=== PATIENT | female | born 1950 | race Caucasian/White ===

== ENCOUNTER 2017-12-17 09:15 | Inpatient (IN) | payer OTHER, BC ==
[2017-12-31] MEDS ORDERED: TRANEXAMIC ACID 3,000 MG in NS (SYRINGE) 50 ML IRR ONE (06:00)
[2017-12-31] MEDS ORDERED: ROPIVACAINE 0.2% 80 MG, EPINEPHrine 0.2 MG, KETOROLAC TROMETHAMINE 30 MG in SYRINGE 0 ML IU ONE (06:00)
--- NOTE | 2017-12-31 07:14 | PDHPUP ---
History & Physical Update H&P update statement: This history and physical update is based on an assessment of the patient which was completed after admission or registration (within 24 hours), but prior to the surgery/procedure. H&P update: H&P reviewed & patient examined, no change in patient's condition since H&P completed
[2017-12-31] MEDS ORDERED: ceFAZolin 2 GM/DEXTROSE 100 ML IV ONE (08:21)
[2017-12-31] MEDS ORDERED: ACETAMINOPHEN 325 MG TAB PO ONE (08:21)
[2017-12-31] MEDS ORDERED: FAMOTIDINE 20 MG TAB PO ONE (08:21)
[2017-12-31] MEDS ORDERED: DEXAMETHASONE 4 MG/ML VIAL IVP ONE (08:21)
[2017-12-31] MEDS ORDERED: LR 1,000 ML IV ONE (08:22)
[2017-12-31] MEDS ORDERED: LIDOCAINE 1% 2 ML INJ ID PRN (08:22)
[2017-12-31] MEDS ORDERED: TRANEXAMIC ACID 3,000 MG/50 ML BAG IRR ONE (08:33)
[2017-12-31] MEDS ORDERED: BUPIVACAINE/DEXTROSE 7.5MG/ML 2 ML SPINAL AMP SP ONE (09:15)
[2017-12-31] MEDS ORDERED: MIDAZOLAM 2 MG/2 ML VIAL ONE (09:15)
[2017-12-31] MEDS ORDERED: ROPIVACAINE HCL 150 MG/30 ML INJ ONE (09:15)
[2017-12-31] MEDS ORDERED: PROPOFOL/EMULSION 500 MG/50 ML BOTTLE IV ONE (09:15)
[2017-12-31] MEDS ORDERED: ALBUTEROL 3 ML DEYVIAL IH PRN (09:59)
[2017-12-31] MEDS ORDERED: LR 500 ML IV PRN (09:59)
[2017-12-31] MEDS ORDERED: ONDANSETRON 4 MG/2 ML VIAL IVP PRN ×2 (09:59→11:16)
[2017-12-31] MEDS ORDERED: fentaNYL 100 MCG/2 ML INJ IVP PRN (09:59)
[2017-12-31] MEDS ORDERED: NALOXONE HCL 0.4 MG/ML INJ IVP PRN (09:59)
[2017-12-31] MEDS ORDERED: DEXAMETHASONE 4 MG/ML VIAL IVP PRN (09:59)
--- NOTE | 2017-12-31 09:59 | PDANEPAE ---
ANE Past Medical History - Cardiovascular History Hx Hypertension: No Hx Arrhythmias: Yes Hx Chest Pain: No Hx Coronary Artery / Peripheral Vascular Disease: No Hx CHF / Valvular Disease: No Hx Palpitations: No Cardiovascular History Comment: pt reports benign heart murmur - Pulmonary History Hx COPD: No Hx Recent Upper Respiratory Infection: No Hx Oxygen in Use at Home: No O2 in Use at Home (L/minute): na Hx Sleep Apnea: No Sleep Apnea Screening Result - Last Documented: Negative - Neurologic History Hx Cerebrovascular Accident: No Hx Seizures: No Hx Dementia: No - Endocrine History Hx Diabetes: No - Renal History Hx Renal Disorders: No - Neurological & Psychiatric Hx Hx Neurological and Psychiatric Disorders: No - Cancer History Hx Cancer: No - Congenital Disorder History Hx Congenital Disorders: No - GI History Hx Gastrointestinal Disorders: No - Other Health History Other Health History: none reported - Chronic Pain History Chronic Pain: No - Surgical History Prior Surgeries: Left partial knee arthroplasty - 2012. bilateral meniscus repairs. tubal ligation ANE Review of Systems Review of Systems: - Exercise capacity METS (RN): 4 METS ANE Patient History - Allergies Allergies/Adverse Reactions: hydroxyzine HCl [From Atarax] Allergy (Verified 12/08/17 11:56) Hives - Home Medications Home Medications: Calcium Carbonate [Oyster Shell Calcium 500 mg (*)] 500 mg PO DAILY 12/01/17 [ Last Taken 2 Weeks Ago ~12/17/17] Herbals/Supplements -Info Only 1 ea PO DAILY 12/01/17 [Last Taken 2 Weeks Ago ~ 12/17/17] valACYclovir [Valtrex (*)] 500 mg PO DAILY 12/01/17 [Last Taken 12/03/17] - NPO status NPO Since - Liquids (Date): 12/31/17 NPO Since - Liquids (Time): 07:00 NPO Since - Solids (Date): 12/30/17 NPO Since - Solids (Time): 18:00 - Smoking Hx Smoking Status: Never smoked - Family Anes Hx Family Hx Anesthesia Complications: none ANE Labs/Vital Signs - Vital Signs Blood Pressure: 125/67 Heart Rate: 59 Respiratory Rate: 18 O2 Sat (%): 95 Height: 177.8 cm Weight: 70.307 kg ANE Physical Exam - Airway Neck exam: FROM Mallampati Score: Class 1 Mouth exam: normal dental/mouth exam - Pulmonary Pulmonary: no respiratory distress, no rales or rhonchi, clear to auscultation - Cardiovascular Cardiovascular: regular rate and rhythym, no murmur, rub, or gallop - ASA Status ASA Status: II ANE Anesthesia Plan Anesthesia Plan: spinal Regional Anesthesia: single shot NB, adductor canal FNB
[2017-12-31] MEDS ORDERED: TEMAZEPAM 15 MG CAP PO PRN (11:16)
[2017-12-31] MEDS ORDERED: PROMETHAZINE HCL 25 MG/ML INJ IVP PRN (11:16)
[2017-12-31] MEDS ORDERED: LACTULOSE 20 GM/30 ML UDCUP PO PRN (11:16)
[2017-12-31] MEDS ORDERED: DIPHENOXYLATE/ATROPINE LOMOTIL 1 TAB PO PRN (11:16)
[2017-12-31] MEDS ORDERED: MAGNESIUM HYDROXIDE 30 ML UDCUP PO PRN (11:16)
[2017-12-31] MEDS ORDERED: PROMETHAZINE HCL 25 MG SUPPR PR PRN (11:16)
[2017-12-31] MEDS ORDERED: METOCLOPRAMIDE 10 MG/2 ML VIAL IVP PRN (11:16)
[2017-12-31] MEDS ORDERED: ONDANSETRON DISINTEGRATING 4 MG TAB PO PRN (11:16)
[2017-12-31] MEDS ORDERED: POLYETHYLENE GLYCOL 3350 17 GM PKT PO PRN (11:16)
[2017-12-31] MEDS ORDERED: diphenhydrAMINE 25 MG CAP PO PRN (11:16)
[2017-12-31] MEDS ORDERED: BISACODYL 10 MG SUPP PR PRN (11:16)
--- NOTE | 2017-12-31 11:16 | POSTOPPROG ---
Post Op Note Date of Operation: 12/31/17 Surgeon: Kallie Stone Broomcorn Grader: bc stone PA-C Anesthesiologist: Dr. Paulino Anesthesia: Spinal, Other (Specify) (adductor canal block) Pre-op Diagnosis: right knee OA Post-op Diagnosis: same Indication: right knee pain Procedure: R TKA robot assisted, sensor assisted Findings: severe knee OA Inf/Abcess present in the surg proc area at time of surgery?: No EBL: 50-100
[2017-12-31] MEDS ORDERED: LR 1,000 ML IV SCH (11:30)
--- NOTE | 2017-12-31 12:03 | POSTANESTH ---
Post Anesthetic Evaluation Cardiovascular Status: Normal, Stable, Similar to Pre-Op Cond Respiratory Status: Normal, Stable, Similar to Pre-op Cond. Level of Consciousness/Mental Status: Can Participate in Eval Pain Control: Adequate, Prn Tx Ordered Nausea/Vomiting Control: Adequate, Prn Tx Ordered Complications Possibly Related to Anesthesia: None Noted
[2017-12-31] MEDS: ACETAMINOPHEN 325 MG TAB PO SCH ×3 (13:07→23:46)
--- NOTE | 2017-12-31 18:22 | GOP ---
DATE OF OPERATION: 12/31/2017 SURGEON: Yanely Lynch MD MANAGER GOVERNMENT: Christa Lynch, MOE ANESTHESIA: Spinal. PREOPERATIVE DIAGNOSIS: Right knee osteoarthritis. POSTOPERATIVE DIAGNOSIS: Right knee osteoarthritis. PROCEDURE PERFORMED: Right total knee arthroplasty with computer navigation, robotic assist. FINDINGS: Severe lateral patellofemoral osteoarthritis. ESTIMATED BLOOD LOSS: 30 cc. INDICATIONS: The patient is a 67-year-old female with severe and progressive pain and deformity of t he right knee unresponsive to conservative care. The risks and benefits of surgical intervention wer e explained in detail. DESCRIPTION OF PROCEDURE: The patient was brought to the operative room and placed on the table in t he supine position. Spinal anesthesia was induced without difficulty. A pneumatic tourniquet was appl ied about the right proximal thigh, and the leg was prepped and draped in a sterile fashion. The leg south was applied. After exsanguination by elevation the tourniquet was inflated to 250 mmHg. Incision was made anterior medial from the tibial tuberosity to a point 2 cm proximal to the superior pole of the patella. Medial parapatellar arthrotomy was carried out from the superior pole of the pa tella and posteriorly in line with the fibers of the Type II VMO. The medial collateral ligament was elevated and the infrapatellar fat pad was resected. The patella was everted and the articular surface was excised. A 35 mm patellar button was placed. Attention was turned first to the distal aspect of the femur. After exposure of the femur, 2 half pi ns were placed for fixation of the femoral array. In a similar fashion, 2 pins were placed anteromed ial on the tibia for fixation of the tibial array. External land marking and registration of the hip center was performed without difficulty. Internal femoral and tibial registration was carried out w ithout difficulty and the femoral and tibial checkpoints were placed and verified for accuracy. Attention was turned to the femur. The foot print for the size 4 femoral component was cut with the saw using the [employer] robotic system and verified for accuracy against the CT based plan. In a similar f ashion, the saw was used to cut the footprint for the size 4 tibial component using the [employer] system an d verified for accuracy against the CT based plan. The tibial articular surface was excised without d ifficulty, followed by the intercondylar box cut. The knee was extended and the remnants of the medial and lateral meniscus were excised. The posterior capsule was injected with ropivacaine, epinephrine and Toradol. A size 4 tibial tray was positioned . Trial reduction was then carried out. There was excellent range of motion, alignment, and stability using the 4 x 9 mm polyethylene. All trials were then removed. The joint was thoroughly irrigated and carefully dried. The Press-Fit c omponents were implanted. The permanent 9 mm polyethylene was placed without difficulty. The tourniquet was deflated and all bleeders were coagulated. The wound was thoroughly irrigated and closed using interrupted sutures of 2-0 Vicryl for the joint capsule. The subcu was closed with 3-0 V icryl and the skin with 4-0 Monocryl. Dermabond and Steri-Strips were applied followed by a compress milan dressing. The patient was then moved from the operating room to the recovery room in good conditi on, having tolerated the procedure well. /[id number]/MODL
[2017-12-31] MEDS: CYCLOBENZAPRINE 10 MG TAB PO PRN (18:25)
[2017-12-31] MEDS: ceFAZolin 2 GM/DEXTROSE 100 ML IV SCH (18:29)
[2017-12-31] MEDS: oxyCODONE IR 5 MG TAB PO PRN (21:27)
[2017-12-31] MEDS: SENNOSIDES/DOCUSATE SODIUM TAB PO SCH (21:28)
[2017-12-31] MEDS: FAMOTIDINE 20 MG TAB PO SCH (21:28)
[2017-12-31] MEDS: ASPIRIN 81 MG CHEWABLE TAB PO SCH (21:28)
[2018-01-01] MEDS: ceFAZolin 2 GM/DEXTROSE 100 ML IV SCH (02:03)
[2018-01-01] MEDS: CYCLOBENZAPRINE 10 MG TAB PO PRN (02:03)
[2018-01-01] MEDS: ACETAMINOPHEN 325 MG TAB PO SCH ×4 (06:23→23:40)
[2018-01-01] MEDS: oxyCODONE IR 5 MG TAB PO PRN ×3 (06:27→23:41)
--- NOTE | 2018-01-01 08:42 | SOAPPROG ---
SOAP Progress Note Assessment/Plan: Assessment: Patient is doing well POD 1 s/p R TKA Pain management: pain is well controlled on oral pain meds. VTE ppx: recommend aspirin 81 mg BID for 4 weeks, cont FARIBA and SCDs Anemia: level is expected initially postop. Asymptomatic. Continue to monitor D/c planning: d/c to home tomorrow pending release from PT and availability of social support out of hospital Adnexal mass on CT: radiologist recommend ultrasound to further work up incidental finding on CT. Ordered STAT. Postop urinary retention: patient was straight cath'd yesterday, resolved today. Plan: 01/01/18 08:39 Subjective: patient states her postop plans for postoperative care changed last minute and that she does not have assistance postop today, denies SOB, chest pain, N/V. c/ o pain in right knee. Objective: Vital Signs Temp Pulse Resp BP Pulse Ox 36.4 C 61 16 132/67 H 95 01/01/18 07:43 01/01/18 07:43 01/01/18 07:43 01/01/18 07:43 01/01/18 07:43 Laboratory Results 01/01/18 04:27 12/31/17 01/01/18 01/02/18 05:59 05:59 05:59 Intake Total 3020 300 Output Total 1710 Balance 1310 300 RLE: incision dressing is clean and dry, NVI, +pf/df ICD10 Worksheet Patient Problems: Problems Problem Status Onset Primary localized osteoarthritis of right knee Acute
[2018-01-01] MEDS: SENNOSIDES/DOCUSATE SODIUM TAB PO SCH ×2 (09:01→20:46)
[2018-01-01] MEDS: ASPIRIN 81 MG CHEWABLE TAB PO SCH ×2 (09:01→20:46)
[2018-01-01] MEDS: FAMOTIDINE 20 MG TAB PO SCH ×2 (09:01→20:46)
--- NOTE | 2018-01-01 09:05 | GDS ---
ADMISSION DIAGNOSIS: Right knee osteoarthritis. DISCHARGE DIAGNOSIS: Right knee osteoarthritis. PROCEDURE: Right total knee arthroplasty with robotic assistance. VTE PROPHYLAXIS: Recommend aspirin 81 mg twice daily for 4 weeks. BRIEF DESCRIPTION OF HOSPITAL STAY: Patient was admitted for an elective joint arthroplasty. The patient tolerated the procedure well and has passed physical therapy. The patient was given appropriate antibiotic prophylaxis and venous thromboembolism prophylaxis. The patient's pain was well controlled on oral pain medication, patient was holding down food, and had urinated. Decision was made to discharge the patient. The patient was given post-operative prescriptions pre-operatively. PLAN: To follow up as scheduled on 01/15/2018. /[id number]/MODL MTDD
--- NOTE | 2018-01-01 16:13 | PDMN ---
Medical Necessity Medical necessity: Change to IP, as of 01/01/18, per PA & MCG S-700; los >2 mn s/ p R TKA w/anemia & adrenal mass on CT; requiring further monitoring, STAT ultrasound & therapies
[2018-01-02] MEDS: ACETAMINOPHEN 325 MG TAB PO SCH ×2 (06:01→12:27)
[2018-01-02 07:43] VITALS: BP 107/54
[2018-01-02] MEDS: ASPIRIN 81 MG CHEWABLE TAB PO SCH (09:43)
[2018-01-02] MEDS: FAMOTIDINE 20 MG TAB PO SCH (09:43)
[2018-01-02] MEDS: SENNOSIDES/DOCUSATE SODIUM TAB PO SCH (09:43)
[2018-01-02] MEDS: CYCLOBENZAPRINE 10 MG TAB PO PRN (12:32)
--- NOTE | 2018-01-02 12:39 | SOAPPROG ---
SOAP Progress Note Assessment/Plan: Assessment: Patient is doing well POD 2 s/p R TKA Pain management: pain is well controlled on oral pain meds. VTE ppx: recommend aspirin 81 mg BID for 4 weeks, cont FARIBA and SCDs Anemia: level is expected initially postop. Asymptomatic. Continue to monitor D/c planning: d/c to home tomorrow pending release from PT and availability of social support out of hospital Adnexal mass on CT: ultrasound conducted, enlarged right ovary, recommend follow up ultrasound in 6 months Postop urinary retention: patient was straight cath'd POD1, resolved today. Plan: 01/01/18 08:39 01/02/18 12:38 Subjective: Apolonia is doing well, ready for d/c Objective: Vital Signs Temp Pulse Resp BP Pulse Ox 36.3 C 64 16 107/54 L 95 01/02/18 07:42 01/02/18 07:42 01/02/18 07:42 01/02/18 07:42 01/02/18 07:42 Laboratory Results 01/02/18 04:30 01/01/18 01/02/18 01/03/18 05:59 05:59 05:59 Intake Total 3020 1150 Output Total 1710 Balance 1310 1150 incision dressing is clean and dry, NVI, +pf/df ICD10 Worksheet Patient Problems: Problems Problem Status Onset Primary localized osteoarthritis of right knee Acute
--- NOTE | 2018-01-02 14:38 | ASMTLACE ---
[facility] Length of stay for Answers: 3 days current admission Acuity / Level of Answers: Yes Care: Did the patient have an inpatient admission? # of Emergency department Answers: 0 visits in the last 6 months Score: 6 Date Signed: 01/02/2018 02:19 PM Electronically Signed By:KATHARINE Carrillo
== END 2018-01-02 13:42 | disposition home or self-care (01) | DRG 470 ==
LOC: F3N 12-31 07:58 → OBSVTOIN 01-01 08:43
PROVIDERS: ADMIT Orthopaedic Surgery; ATTEND Orthopaedic Surgery
DX: M17.11 Unilateral primary osteoarthritis, right knee (principal)
CPT/HCPCS: 97110-GP; 97116-GP; 97161-GP; G8978-GP-CL; G8979-GP-CI; G8980-GP-CI; J0171; J0690; J1100; J1885; J2250; J2704; J2795

== ENCOUNTER → 2017-12-29 | Outpatient (CLI) | payer OTHER, BC | LOC: FIMAGING 14:40 | PROVIDERS: ATTEND Orthopaedic Surgery | DX: M17.11 Unilateral primary osteoarthritis, right knee (principal); N83.8 Other noninflammatory disorders of ovary, fallopian tube and broad ligament ==

== ENCOUNTER → 2018-02-16 | Outpatient (CLI) | payer OTHER, BC | LOC: FIMAGING 12:26 | PROVIDERS: ATTEND Orthopaedic Surgery | DX: M79.661 Pain in right lower leg (principal) ==